=== PATIENT | female | born 1965 | race Caucasian/White ===

== ENCOUNTER 2017-10-20 12:27 | Emergency (ER) | payer OTHER ==
--- NOTE | 2017-10-20 13:17 | EDPHY ---
H & P Stated Complaint: Low back pain w/sciatica and some difficulty w/voiding Time Seen by Provider: 10/20/17 13:15 - Personal History LMP (Females 10-55): Hysterectomy Current Tetanus Diphtheria and Acellular Pertussis (TDAP): Yes - Medical/Surgical History Other PMH: depression. colorectal CA w/surg May 2017. abnl EKGs (inverted T waves) - Social History Smoking Status: Never smoked Constitutional: Initial Vital Signs Temperature (C) 36.5 C 10/20/17 12:30 Heart Rate 75 10/20/17 12:30 Respiratory Rate 18 10/20/17 12:30 Blood Pressure 141/92 H 10/20/17 12:30 O2 Sat (%) 97 10/20/17 12:30 O2 Delivery Mode Room Air O2 (L/minute) 2 Allergies/Adverse Reactions: latex Allergy (Severe, Verified 10/20/17 12:30) can't breathe Home Medications: Medication Instructions Recorded Acyclovir [Zovirax 400 mg (*)] 800 mg PO QID 10/20/17 Cyclobenzaprine [Flexeril 10 MG 10 mg PO 10/20/17 (*)] Escitalopram Oxalate [Lexapro 10 10/20/17 MG] HYDROcodone/APAP 10/325 [[place] 1 - 2 each PO Q4-6PRN PRN #20 tab 10/20/17 10/325] Loratadine [Claritin] 10 mg PO 10/20/17 Medical Decision Making - Diagnostics Imaging Results: Imaging Impressions Lumbar Spine MRI 10/20/17 13:29 Impression: 1. Normal MRI lumbar spine without and with contrast. 2. No abnormal enhancing lesions. Findings discussed with Justin Toribio MD at 17:01 hour, 10/20/2017. Imaging: Discussed imaging studies w/ call specialist Radiologist ED Course/Re-evaluation: CHIEF COMPLAINT: Lower back pain HISTORY OF PRESENT ILLNESS: This patient is a 51 year-old female with history of colorectal cancer s/p resection complaining of left-sided lower back pain. Her discomfort began on , three days ago. It originates around her sciatic area and radiates down her left leg. Last night around 9:00pm the pain became more severe and she was unable to bear weight on her left leg due to weakness. She was unable to control her bladder normally while urinating last night and this morning. Currently, her pain is about 8/10 in severity and is associated with nausea. She cannot remember any precipitating event and denies any recent trauma. She does not have history of back pain with radiculopathy. She has taken Advil, Excedrin, and cyclobenzaprine without relief. The patient denies having an MRI in the past. She denies fever, chest pain, abdominal pain, shortness of breath, or other associated symptoms. REVIEW OF SYSTEMS: A 10 point review of systems was performed and is negative with the exception of the elements mentioned in the history of present illness. PHYSICAL EXAM: HR, BP, O2 Sat, RR. Temp noted General Appearance: Alert, well hydrated, appropriate, and non-toxic appearing. Head: Atraumatic without scalp tenderness or obvious injury Eyes: Pupils equal, round, reactive to light and accommodation, EOMI, no trauma , no injection. Ears: Clear bilaterally, no perforation, normal landmarks Nose: Atraumatic, no rhinorrhea, clear. Throat: There is no erythema or exudates, no lesions, normal tonsils, mucus membranes moist. Neck: Supple, 2+ carotid upstroke, nontender, no lymphadenopathy. Respiratory: No retractions, no distress, no wheezes, and no accessory muscle use. Lungs are clear to auscultation bilaterally. Cardiovascular: Regular rate and rhythm, no murmurs, rubs, or gallops. Bilateral carotid, radial, dorsalis pedis, and posterior tibial pulses intact. Good capillary refill all extremities. Gastrointestinal: Abdomen is soft, nontender, non-distended, no masses, no rebound, no guarding, no peritoneal signs. Musculoskeletal: Normal active ROM of all extremities, atraumatic. Neurological: Alert, appropriate, and interactive. The patient has normal DTRs and non-focal cranial nerves, motor, sensory, and cerebellar exam. Weakness with left knee extension. No giveaway. Skin: No rashes, good turgor, no nodules on palpation. Past medical history:History of low rectal cancer s/p surgical resection. History of shingles (not currently active). Past surgical history: Colorectal surgery. Family history: Noncontributory. Social history: Patient works as a nurse. . at bedside. DIFFERENTIAL DIAGNOSIS: The differential diagnosis for the patient's back pain included but was not limited to musculo-skeletal pain, epidural abscess, herniated disk, spinal fracture, and intra-abdominal causes including urinary system. MEDICAL DECISION MAKING: This 51 y/o female presents with left-sided back pain with associated left leg weakness and difficulty with urination. Due to progression of symptoms and the patient's report of bladder dysfunction, I will proceed with MRI imaging to rule out severe disc herniation vs other acute causes. I offered medication for pain as patient rates severity at 8/10. The patient declines morphine. She states Dilaudid works well for her. Plan to administer 30mg IV Toradol, 1mg IV Dilaudid, and 4mg IV Zofran for symptom relief. 14:40 Patient complains of anxiety related to MRI. Plan to administer 10mg IV Valium. The patient is a nurse and requested Valium specifically. 17:[address] Nash, radiologist. Normal MRI lumbar spine. 17:10 Reassessed patient. Discussed imaging results. Plan to discharge home in good condition with prescription for [place] for severe pain. She will follow up with [facility] for further evaluation. Return precautions discussed. She is comfortable with this plan. - Data Points Laboratory Results: 10/20/17 13:46 POC Hgb 16.0 gm/dL gm/dL (12.6-16.3) POC Hct 47 % % (38-47) POC Sodium 141 mEq/L mEq/L (135-145) POC Potassium 3.8 mEq/L mEq/L (3.3-5.0) POC Chloride 103 mEq/L mEq/L (97-110) POC BUN 8 mg/dL mg/dL (7-23) POC Creatinine 0.6 mg/dL mg/dL (0.6-1.0) POC Glucose 104 mg/dL H mg/dL (70-100) Medications Given: Discontinued Medications Diazepam (Valium) 10 mg IVP EDNOW ONE Stop: 10/20/17 14:50 Last Admin: 10/20/17 14:58 Dose: 5 mg Hydromorphone HCl (Dilaudid) 1 mg IVP EDNOW ONE Stop: 10/20/17 13:32 Last Admin: 10/20/17 13:48 Dose: 1 mg Ketorolac Tromethamine (Toradol) 30 mg IVP EDNOW ONE Stop: 10/20/17 13:32 Last Admin: 10/20/17 13:48 Dose: 30 mg Ondansetron HCl (Zofran) 4 mg IVP EDNOW ONE Stop: 10/20/17 13:32 Last Admin: 10/20/17 13:49 Dose: 4 mg Point of Care Test Results: Chemistry 10/20/17 13:46 POC Sodium 141 mEq/L mEq/L (135-145) POC Potassium 3.8 mEq/L mEq/L (3.3-5.0) POC Chloride 103 mEq/L mEq/L (97-110) POC BUN 8 mg/dL mg/dL (7-23) POC Creatinine 0.6 mg/dL mg/dL (0.6-1.0) POC Glucose 104 mg/dL H mg/dL (70-100) ISTAT H&H 10/20/17 13:46 POC Hgb 16.0 gm/dL gm/dL (12.6-16.3) POC Hct 47 % % (38-47) Departure - Departure Disposition: Home, Routine, Self-Care Clinical Impression: Musculoskeletal back pain Condition: Good Instructions: Hydrocodone/Acetaminophen (By mouth), Musculoskeletal Pain (ED) Additional Instructions: Followup with a agricultural specialist within one week. Return to the emergency department for severe pain, fever, numbness, difficulty walking, change in location or nature of pain or other concerns. Use ibuprofen and Tylenol as directed. Take [place] as prescribed as needed for severe pain. Try using a heating pad. Adult Pain & Fever Control: We recommend Acetaminophen (Tylenol) and Ibuprofen (Motrin,Advil) for pain and fever control. When fever is high or pain severe, both drugs can be used at the same time, but at different intervals. Please note the time differences. Your dose is: Acetaminophen 650mg every 4 to 6 hours Ibuprofen 600mg every 6-8 hours with food Note: do not take Acetaminophen with Hydrocodone (Vicodin, Lortab) or Oxycodone (Percocet). These medications also contain Acetaminophen. No more than 3000mg of Acetaminophen should be taken in 24 hours (for an adult). Referrals: Mary Vieyra PA [Primary Care Provider] - As per Instructions [facility] [Outside] - As per Instructions Prescriptions: HYDROcodone/APAP 10/325 [[place] 10/325] 1 - 2 each PO Q4-6PRN PRN #20 tab PRN Reason: Pain, Moderate Report Scribed for: Justin Toribio Report Scribed by: Tatiana Spain Date of Report: 10/20/17 Time of Report: 17:21
[2017-10-20] MEDS ORDERED: HYDROmorphONE/DILAUDID 2 MG/ML INJ IVP ONE (13:31)
[2017-10-20] MEDS ORDERED: KETOROLAC 30 MG/1 ML SDV IVP ONE (13:31)
[2017-10-20] MEDS ORDERED: ONDANSETRON 4 MG/2 ML VIAL IVP ONE (13:31)
[2017-10-20] MEDS ORDERED: DIAZEPAM 5 MG/ML 1 ML SYR IVP ONE (14:49)
[2017-10-20] MEDS ORDERED: GADOBUTROL 10 ML VIAL IVP ONE (16:28)
[2017-10-20 17:12] VITALS: BP 118/75
[2017-10-20] MEDS ORDERED: HYDROCOD/APAP 5/325 PREPACK#6 BTL TAKEHOME ONE (17:26)
== END 2017-10-20 17:27 | disposition home or self-care (01) ==
DX: M54.42 Lumbago with sciatica, left side (principal); R39.9 Unspecified symptoms and signs involving the genitourinary system; Z85.038 Personal history of other malignant neoplasm of large intestine; Z98.890 Other specified postprocedural states
CPT/HCPCS: 82435-PO; 82565-PO; 82947-PO; 84132-PO; 84295-PO; 84520-PO; 85014-PO; 96374; A9585; J1170; J1885; J2405; J3360

== ENCOUNTER → 2018-07-28 | Outpatient (CLI) | payer OTHER | LOC: BMCIMAGING 16:04 | PROVIDERS: ATTEND Family Medicine | DX: S69.91XA Unspecified injury of right wrist, hand and finger(s), initial encounter (principal); X58.XXXA Exposure to other specified factors, initial encounter; Y93.6A Activity, physical games generally associated with school recess, summer camp and children ==